=== PATIENT | female | born 2000 | race Caucasian/White ===

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

== ENCOUNTER 2018-12-13 03:18 | Emergency (ER) | payer OTHER ==
[2018-12-13 03:18] VITALS: BMI 25.4
[2018-12-13 04:38] LABS: HCG,QUALITATIVE URINE NEGATIVE (NEGATIVE); SQUAMOUS EPITHIAL 5 /hpf (0-5); URINE BACTERIA RARE (<OCC); URINE BILIRUBIN NEGATIVE (NEGATIVE); URINE BLOOD NEGATIVE (NEGATIVE); URINE CLARITY Hazy (Clear); URINE COLOR Yellow (YELLOW); URINE GLUCOSE (UA) NORMAL (Normal); URINE LEUKOCYTE ESTERASE NEG Leu/uL (Negative); URINE PROTEIN NEGATIVE (NEGATIVE); URINE UROBILINOGEN NORMAL mg/dL (0.2-1.0)
--- NOTE | 2018-12-13 04:57 | C.PDOC ---
History Of Present Illness 18 year old female presents to the ED c/o lower abdominal pain for the past 1 day. Patient also c/o feeling warm, mild headache. 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 Patient raphael es fever, chills, rash, cough, congestion, dysuria, hematuria, vaginal bleeding, vaginal discharge. Time Seen by Provider: 12/13/18 03:51 Chief Complaint (Nursing): Headache History Per: Patient History/Exam Limitations: no limitations Onset/Duration Of Symptoms: Days (1) Current Symptoms Are (Timing): Still Present Quality: "Pain" Recent travel outside of the [place]: No Additional History Per: Patient Past Medical History Reviewed: Historical Data, Nursing Documentation, Vital Signs Vital Signs: Last Vital Signs Temp 99 F 12/13/18 03:33 Pulse 110 H 12/13/18 03:33 Resp 20 12/13/18 03:33 BP 109/66 12/13/18 03:33 Pulse Ox 99 12/13/18 03:33 Primary Care Provider: Non [facility] Provider, - Medical History PMH: Asthma Surgical History: No Surg Hx Family History: States: Unknown Family Hx - Social History Hx Tobacco Use: No Hx Alcohol Use: No Hx Substance Use: No - Immunization History Hx Tetanus Toxoid Vaccination: No Hx Influenza Vaccination: Yes Hx Pneumococcal Vaccination: No Review Of Systems Constitutional: Negative for: Fever, Chills Cardiovascular: Negative for: Chest Pain Respiratory: Negative for: Shortness of Breath Gastrointestinal: Positive for: Abdominal Pain. Negative for: Nausea, Vomiting Genitourinary: Negative for: Vaginal Discharge, Vaginal Bleeding Musculoskeletal: Negative for: Back Pain Skin: Negative for: Rash Neurological: Positive for: Headache. Negative for: Weakness, Numbness, Dizziness Physical Exam - Physical Exam Appears: Non-toxic, No Acute Distress Skin: Normal Color, Warm, Dry Head: Atraumatic, Normacephalic Eye(s): bilateral: Normal Inspection Neck: Normal ROM, Supple Chest: Symmetrical Cardiovascular: Rhythm Regular Respiratory: Normal Breath Sounds, No Rales, No Rhonchi, No Wheezing Gastrointestinal/Abdominal: Soft, Tenderness (minimal suprapubic), No Guarding, No Rebound Pelvic: Vaginal Discharge (thin, whitish with no foul odor), No Cervical Motion Tenderness, No Adnexal Tenderness, No Mass Extremity: Normal ROM, No Tenderness, No Swelling Neurological/Psych: Oriented x3, Normal Speech, Normal Cognition Gait: Steady ED Course And Treatment - Laboratory Results Result Diagrams: 12/13/18 05:35 12/13/18 05:35 Lab Results: Urine Color Yellow (YELLOW) 12/13/18 04:26 Urine Clarity Hazy (Clear) 12/13/18 04:26 Urine pH 5.0 (5.0-8.0) 12/13/18 04:26 Ur Specific [place] 1.028 (1.003-1.030) 12/13/18 04:26 Urine Protein Negative mg/dL (NEGATIVE) 12/13/18 04:26 Urine Glucose (UA) Normal mg/dL (Normal) 12/13/18 04:26 Urine Ketones Negative mg/dL (NEGATIVE) 12/13/18 04:26 Urine Blood Negative (NEGATIVE) 12/13/18 04:26 Urine Nitrate Negative (NEGATIVE) 12/13/18 04:26 Urine Bilirubin Negative (NEGATIVE) 12/13/18 04:26 Urine Urobilinogen Normal mg/dL (0.2-1.0) 12/13/18 04:26 Ur Leukocyte Esterase Neg [place]/uL (Negative) 12/13/18 04:26 Urine WBC (Auto) 1 /hpf (0-5) 12/13/18 04:26 Urine RBC (Auto) 1 /hpf (0-3) 12/13/18 04:26 Ur Squamous Epith Cells 5 /hpf (0-5) 12/13/18 04:26 Urine Bacteria Rare (<OCC) 12/13/18 04:26 Urine HCG, Qual Negative (NEGATIVE) 12/13/18 04:26 Urine HCG, Qual Negative (NEGATIVE) 12/13/18 04:26 O2 Sat by Pulse Oximetry: 99 (ON RA) Pulse Ox Interpretation: Normal Progress Note: Plan: - Motrin 800 mg PO. - UA. While in ED pt c/o of nausea and vomited a large amount of food vomitus, denies abdominal pain.Abdomen soft nontender . Labs and IV hydration and zofran IV ordered. Labs reviewed and WML pt tolerated PO. reports much improvement. will follow up with PMD. Patient is resting comfortably, and is in no acute distress. Patient was instructed to follow up with PMD in 1-2 days for further evaluation. 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 - Scribe Statement The provider has reviewed the documentation as recorded by the Scribe Jose Alejandro Hastings All medical record entries made by the Scribe were at my direction and personally dictated by me. I have reviewed the chart and agree that the record accurately reflects my personal performance of the history, physical exam, medical decision making, and the department course for this patient. I have also personally directed, reviewed, and agree with the discharge instructions and disposition.
[2018-12-13] MEDS ORDERED: Sodium Chloride 0.9% 1,000 ML IV ONE (05:21)
[2018-12-13 05:38] LABS: BASO % 0.2 % (0.0-2.0); EOS % 0.7 % (0.0-4.0); HEMOGLOBIN 12.3 g/dL (11.0-16.0); LYMPH # 0.7 K/uL (1.0-4.3); LYMPH % 9.4 % (20.0-40.0); MEAN CELL VOLUME 84.5 fL (81.0-99.0); MEAN CORPUSCULAR HEMOGLOBIN 27.4 pg (27.0-31.0); MEAN CORPUSCULAR HGB CONC 32.4 g/dL (33.0-37.0); MEAN PLATELET VOLUME 9.4 fL (7.2-11.7); MONO # 0.3 K/uL (0.0-0.8); MONO % 4.8 % (0.0-10.0); NEUT % 84.9 % (50.0-75.0); PLATELET COUNT 232 K/uL (130-400); RED CELL DISTRIBUTION WIDTH 13.9 % (11.5-14.5); WHITE BLOOD COUNT 7.1 K/uL (4.8-10.8)
[2018-12-13 05:50] LABS: ALB/GLOB RATIO 1.4 (1.0-2.1); ALBUMIN 4.4 g/dL (3.5-5.0); ALT/SGPT 20 U/L (9-52); AST/SGOT 21 U/L (14-36); BLOOD UREA NITROGEN 7 mg/dL (7-17); CALCIUM 8.3 mg/dl (8.6-10.4); GFR NON-AFRICAN AMERICAN > 60; LIPASE 91 U/L (23-300)
[2018-12-13 06:22] VITALS: BP 115/73; PULSE 98; RESP 18; TEMP 98.7
[2018-12-13 06:36] VITALS: O2SAT 99
[2018-12-13 08:16] LABS: BANDS 3 % (0-2); EOSINOPHIL 2 % (0-4); LYMPHOCYTE 9 % (20-40); MONOCYTE 4 % (0-10); NEUTROPHIL 82 % (50-75); PLATELET ESTIMATE NORMAL (NORMAL); TOTAL CELLS COUNTED 100
== END 2018-12-13 06:48 | disposition home or self-care (01) ==
LOC: C.ER 03:18
DX: B34.9 Viral infection, unspecified (principal)
CPT/HCPCS: 80053; 81001; 83690; 84703; 85025; 96361; 96374; 99285; J2405; J7030

== ENCOUNTER 2018-12-17 09:20 | Emergency (ER) | payer SELFPAY ==
[2018-12-17 09:20] VITALS: BMI 25.4
[2018-12-17 09:28] VITALS: BP 110/64; PULSE 72; RESP 18; TEMP 98.2; O2SAT 100
[2018-12-17] MEDS ORDERED: Tetracaine 0.5% Ophth 2 ML BOTTLE OD ONE (09:33)
[2018-12-17] MEDS ORDERED: Fluorescein 1 mg Ophthalmic Strip OD ONE (09:34)
[2018-12-17] MEDS ORDERED: Fluorescein 1 mg Ophthalmic Strip ONE (09:44)
[2018-12-17] MEDS ORDERED: Tetracaine 0.5% Ophth (OR ONLY) ONE (09:45)
--- NOTE | 2018-12-17 10:30 | C.PDOC ---
History Of Present Illness 18 y/o female, who usually wears contacts, is brought in via BLS stating that she fell asleep with contacts in overnight. States she woke up with redness and pain to her right eye so she removed the contact without adding any moisture. Reports her vision feels blurry. Patient did not check the contact for any tears or holes. Left contact still in. Time Seen by Provider: 12/17/18 09:32 Chief Complaint (Nursing): Eye Problem History Per: Patient History/Exam Limitations: no limitations Onset/Duration Of Symptoms: Hrs Current Symptoms Are (Timing): Still Present Past Medical History Reviewed: Historical Data, Nursing Documentation, Vital Signs Vital Signs: Last Vital Signs Temp 98.2 F 12/17/18 09:22 Pulse 72 12/17/18 09:22 Resp 18 12/17/18 09:22 BP 110/64 12/17/18 09:22 Pulse Ox 100 12/17/18 09:22 Primary Care Provider: Anamika Nicholson MD - Medical History PMH: Asthma Family History: States: No Known Family Hx - Social History Hx Tobacco Use: No Hx Alcohol Use: No Hx Substance Use: Yes - Immunization History Hx Tetanus Toxoid Vaccination: No Hx Influenza Vaccination: Yes Hx Pneumococcal Vaccination: No Review Of Systems Constitutional: Negative for: Fever, Chills Eyes: Positive for: Pain (right eye pain), Vision Change (blurry), Redness (right eye) Physical Exam - Physical Exam Appears: Non-toxic, No Acute Distress Skin: Warm, Dry Head: Normacephalic Eye(s): bilateral: PERRL, EOMI, right: Other (injected, no foreign body noted, fluorescein uptake at 6 o clock) Oral Mucosa: Moist Neck: Supple Extremity: Bilateral: Normal ROM Neurological/Psych: Oriented x3, Normal Speech ED Course And Treatment O2 Sat by Pulse Oximetry: 100 (RA) Pulse Ox Interpretation: Normal Medical Decision Making Medical Decision Making: Plan: --Fluorescein uptake --Tetracaine 1 drop initilly pt with 20/400 right eye with glasses on; aftr tetracaine and fluorecein stain. rechecked and was 20/40 with glasses. d/c home, f/u ophthalmology Disposition Counseled Patient/Family Regarding: Studies Performed, Diagnosis, Need For Followup, Rx Given - Disposition Referrals: Kristian Roach MD [Staff Provider] - Disposition: HOME/ ROUTINE Disposition Time: 10:34 Condition: GOOD Additional Instructions: Use drops as prescribed in right eye. Do not put contacts back in until instructed ok to do so by eye doctor. Follow up with your eye doctor or with Dr Roach on Wednesday without fail. 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 - Scribe Statement The provider has reviewed the documentation as recorded by the Scribe Laxmi Oliver All medical record entries made by the Scribe were at my direction and personally dictated by me. I have reviewed the chart and agree that the record accurately reflects my personal performance of the history, physical exam, medical decision making, and the department course for this patient. I have also personally directed, reviewed, and agree with the discharge instructions and disposition.
== END 2018-12-17 10:47 | disposition home or self-care (01) ==
LOC: C.ER 09:20
DX: H18.821 Corneal disorder due to contact lens, right eye (principal)